=== PATIENT | female | born 1980 | race Caucasian/White ===

== ENCOUNTER → 2024-01-20 16:56 | Outpatient (BNVA) | payer BC, SELFPAY | PROVIDERS: Family Provider Nurse Practitioner; PCP Nurse Practitioner; Visit Provider Family Medicine | DX: I10 Essential (primary) hypertension (principal); E03.9 Hypothyroidism, unspecified; J44.9 Chronic obstructive pulmonary disease, unspecified; J43.9 Emphysema, unspecified | CPT/HCPCS: 80053; 80061; 84443; 85025 ==

== ENCOUNTER → 2024-02-20 11:29 | Outpatient (BNVA) | payer BC, SELFPAY | PROVIDERS: Family Provider Nurse Practitioner; PCP Family Medicine; Visit Provider Family Medicine | DX: E03.9 Hypothyroidism, unspecified; R79.89 Other specified abnormal findings of blood chemistry | CPT/HCPCS: 84443; 85025 ==

== ENCOUNTER 2024-04-29 11:28 | Oncology outpatient (recurring) (ONCR) | payer BC, SELFPAY ==
[2024-04-29 13:00] LABS: Basophils # 0.1 10^3/uL (0.0-0.1); Basophils % 0.7 %; Eosinophils # 0.2 10^3/uL (0.0-0.8); Eosinophils % 1.7 %; Lymphocytes # 1.7 10^3/uL (0.8-4.8); Lymphocytes % 16.2 %; Mean Corpuscular HGB Conc 32.4 g/dL (30-55); Mean Corpuscular Hemoglobin 27.5 pg (27-33); Mean Corpuscular Volume 84.9 fl (85-98); Mean Platelet Volume 9.6 fL (7.4-10.4); Monocytes # 0.9 10^3/uL (0.2-0.9); Monocytes % 8.8 %; Neutrophils # 7.36 10^3/uL (1.8-7.7); Neutrophils % 72.1 %; Nucleated Red Blood Cells % 0 %; Platelet Count 540 10^3/cmm (157-399); Red Blood Count 4.36 10^6/uL (3.85-5.65); Reticulocyte % 1.1 % (0.5-2.0)
[2024-04-29 13:13] LABS: INR 0.94 (0.8-1.2)
[2024-04-29 13:14] LABS: Partial Thromboplastin Time 30.5 SECONDS (23.9-36.7)
[2024-04-29 13:33] LABS: Alanine Aminotransferase 10 U/L (0-33); Albumin Level 4.4 g/dL (3.5-5.2); Alkaline Phosphatase 106 U/L (35-105); Anion Gap 15.6 (5-19); Aspartate Amino Transferase 15 U/L (0-32); Blood Urea Nitrogen 15 mg/dL (6-20); Calcium 9.1 mg/dL (8.5-10.5); Carbon Dioxide 21 mmol/L (22-29); Chloride 104 mmol/L (98-107); Creatinine Clr Calc Pharmacy 81.8832; Globulin 2.8 g/dL (1.3-4.6); Glomerular Filtration Rate 78.3 mL/min (90-130); Glucose 87 mg/dL (65-115); Lactate Dehydrogenase 177 U/L (135-214); Osmolality Calculated 282 mOsm/kg (285-295); Potassium 4.6 mmol/L (3.5-5.1); Sodium 136 mmol/L (136-145); Total Bilirubin 0.2 mg/dL (0.15-1.2); Total Protein 7.2 g/dL (6.6-8.7)
[2024-04-29 13:51] LABS: Hepatitis A Antibody IgM Non-Reactive (Nonreactive); Hepatitis B Core AB, Total Non-Reactive (Nonreactive); Hepatitis B Surface AB 4.6 (11.5-1000); Hepatitis B Surface Antigen Non-Reactive (Nonreactive); Hepatitis C Virus Antibody Non-Reactive (Nonreactive)
[2024-04-29 14:59] LABS: Ferritin 38 ng/mL (15-150); Iron 25 ug/dL (37-145); Percent Saturation 6.9 % (20-50); Total Iron Binding Capacity 361 mcg/dl; Unsaturated Iron Binding 336 ug/dL (112-347)
[2024-04-29 15:11] LABS: LAB Peripheral Smear Sent for Review
[2024-04-29 15:13] LABS: Vitamin B12 471 pg/mL (232-1245)
[2024-04-29 15:17] LABS: Folate Level 11.6 ng/mL (4.8-37.3)
[2024-05-02 03:53] LABS: Methylmalonic Acid 176 nmol/L (55-335)
== END 2024-05-27 23:59 | disposition home or self-care (01) ==
PROVIDERS: Internal Medicine; Family Provider Nurse Practitioner; PCP Family Medicine; Visit Provider Internal Medicine Medical Oncology
DX: D75.839 Thrombocytosis, unspecified (principal)
CPT/HCPCS: 36415; 80053; 82607; 82728; 82746; 83540; 83550; 83615; 83921; 84238; 85025; 85045; 85610; 85730; 86705; 86706; 86709; 86803; 87340

== ENCOUNTER → 2024-07-29 14:58 | Outpatient (BNVA) | payer BC, SELFPAY | PROVIDERS: Family Provider Nurse Practitioner; PCP Family Medicine; Visit Provider Nurse Practitioner Family | DX: R39.9 Unspecified symptoms and signs involving the genitourinary system (principal); N39.0 Urinary tract infection, site not specified | CPT/HCPCS: 81000 ==

== ENCOUNTER → 2024-07-30 10:37 | Outpatient (BNVA) | payer BC, SELFPAY | PROVIDERS: Family Provider Nurse Practitioner; PCP Family Medicine; Visit Provider Nurse Practitioner Family | DX: R30.0 Dysuria (principal) | CPT/HCPCS: 87086 ==

== ENCOUNTER → 2024-09-28 14:39 | Outpatient (BNVA) | payer BC, SELFPAY | PROVIDERS: Family Provider Nurse Practitioner; Visit Provider Nurse Practitioner Family | DX: R50.9 Fever, unspecified (principal); J44.1 Chronic obstructive pulmonary disease with (acute) exacerbation | CPT/HCPCS: 87400; 87426 ==